=== PATIENT | female | born 1980 | race Caucasian/White ===

== ENCOUNTER 2017-05-25 09:31 | Day surgery (SDC) | payer MEDICAID ==
[~2017-05-25 09:31] MED LIST: NEOSTIGMINE 3 MG/3 ML SYRINGE
[2017-05-25] MEDS ORDERED: ROCURONIUM 50 MG INJ (12:30)
[2017-05-25] MEDS ORDERED: MIDAZOLAM 1 MG/ML 2 ML INJ (12:30)
[2017-05-25] MEDS ORDERED: ONDANSETRON 4 MG INJ (12:30)
[2017-05-25] MEDS ORDERED: PROPOFOL 20 ML (12:30)
[2017-05-25] MEDS ORDERED: METOCLOPRAMIDE 10 MG INJ (12:30)
[2017-05-25] MEDS ORDERED: KETOROLAC 30 MG INJ ×2 (12:30→14:10)
[2017-05-25] MEDS ORDERED: ROPIVACAINE 0.5 % 30 ML VIAL (12:30)
[2017-05-25] MEDS ORDERED: EPINEPHrine 1 MG INJ (12:47)
[2017-05-25] MEDS ORDERED: CEFAZOLIN 1 GM INJ (13:07)
[2017-05-25] MEDS: BUPIVACAINE 0.25% (MPF) 30 ML INJ (13:40)
[2017-05-25] MEDS ORDERED: HYDROmorphONE 2 MG/ML SYG (14:06)
[2017-05-25] MEDS ORDERED: GLYCOPYRROLATE 0.4 MG INJ (14:12)
[2017-05-25] MEDS ORDERED: HYDROmorphONE (0.2 MG/ML) 10ML SYG IV ×2 (14:30)
[2017-05-25] MEDS: HYDROmorphONE (0.2 MG/ML) 10ML SYG IV (15:06)
[2017-05-25] MEDS: ONDANSETRON 4 MG INJ IV (15:06)
== END 2017-05-25 16:49 | disposition home or self-care (01) ==
LOC: SDS 09:31
DX: Z30.2 Encounter for sterilization (principal)
CPT/HCPCS: 58600; 88302